=== PATIENT | male | born 1980 | race Caucasian/White ===

== ENCOUNTER 2017-05-01 18:12 | Emergency (ER) | payer SELFPAY ==
[~2017-05-01] VITALS: Ht 177.8 cm; Wt 77.1 kg
[~2017-05-01 18:12] MED LIST: HYDR-971 PO; ONDA4TAB10 SL; TAMS0.4C97 PO
[2017-05-01 18:26] VITALS: BP 139/90
--- NOTE | 2017-05-01 18:42 | PHYS DOC ---
Past Medical History Past Medical History: No Pertinent History Past Surgical History: Splenectomy Alcohol Use: None Drug Use: None Adult General Chief Complaint Chief Complaint: MECHANICAL FALL HPI HPI Patient is a 36 year old male since emergency department stating that tunnels when he slipped and fell. He states that he has having right thumb and elbow pain and discomfort. He states that this happened around the clock tonight. He has not taken anything for pain and discomfort. Patient has full range of motion noted of his hands wrist and elbow area. Patient denies any numbness or tingling into his hand. Patient is able to close his hand in a fist. Right tenderness noted over the scaphoid area. He'll pulses 2+. Cap refill brisk less than 2 seconds. Good sensation noted to the fingers. Review of Systems Review of Systems Constitutional: Denies fever or chills [] Eyes: Denies change in visual acuity, redness, or eye pain [] HENT: Denies nasal congestion or sore throat [] Respiratory: Denies cough or shortness of breath [] Cardiovascular: No additional information not addressed in HPI [] GI: Denies abdominal pain, nausea, vomiting, bloody stools or diarrhea [] : Denies dysuria or hematuria [] Musculoskeletal: Denies back pain. c/o right hand, right elbow pain Integument: Denies rash or skin lesions [] Neurologic: Denies headache, focal weakness or sensory changes [] Endocrine: Denies polyuria or polydipsia [] Current Medications Current Medications Current Medications Medications (Trade) Dose Ordered Sig/Maranda Start Time Stop Time Status Last Admin Dose Admin Ibuprofen (Motrin) 800 mg 1X ONCE 05/01/17 18:45 05/01/17 18:46 DC Allergies Allergies Allergies Coded Allergies Type Severity Reaction Last Updated Verified No Known Drug Allergies 05/12/16 No Physical Exam Physical Exam Constitutional: Well developed, well nourished, no acute distress, non-toxic appearance. [] HENT: Normocephalic, atraumatic, bilateral external ears normal, oropharynx moist, no oral exudates, nose normal. [] Eyes: PERRLA, EOMI, conjunctiva normal, no discharge. [] Neck: Normal range of motion, no tenderness, supple, no stridor. [] Cardiovascular:Heart rate regular rhythm, no murmur [] Lungs & Thorax: Bilateral breath sounds clear to auscultation [] Skin: Warm, dry, no erythema, no rash. [] Back: No tenderness Extremities: C/o right thumb, right wrist and right elbow tenderness, no cyanosis, no clubbing, ROM intact, no edema. No deformities no crepitus no discoloration noted. Patient was noted to have full range of motion of his elbow , wrist, and hand. Peripheral pulses, radial 2+ cap refill brisk less than 2 seconds. Good sensation noted to the fingers. Neurologic: Alert and oriented X 3, normal motor function, normal sensory function, no focal deficits noted. [] Psychologic: Affect normal, judgement normal, mood normal. [] Current Patient Data Vital Signs Vital Signs Date Time Temp Pulse Resp B/P (MAP) Pulse Ox O2 Delivery O2 Flow Rate FiO2 05/01/17 18:26 98.4 91 19 95 Room Air 98.4 EKG EKG [] Radiology/Procedures Radiology/Procedures [] Course & Med Decision Making Course & Med Decision Making Pertinent Labs and Imaging studies reviewed. (See chart for details) X-rays were negative for any bony abnormality per Dr. Schultz. Due to patient's tenderness she will be placed in a thumb spica splint with recommendations to follow-up with orthopedic. Recommended Tylenol or ibuprofen for pain and discomfort ice packs on 20 minutes off 20 minutes several times a day elevation as much as possible. Signs and symptoms to return back to emergency department as been provided. Patient agrees with discharge instructions treatment regimens and follow-up recommendations. [] Dragon Disclaimer Dragon Disclaimer This electronic medical record was generated, in whole or in part, using a voice recognition dictation system. Departure Departure Impression: Primary Impression: Hand pain, right Additional Impression: Elbow pain, right Disposition: 01 HOME, SELF-CARE Condition: STABLE Referrals: NO PCP (PCP) MENDOZA DESAI II, MD Patient Instructions: Elbow Injury-Brief, Hand Contusion, [id number] Additional Instructions: Activity as tolerated. Tylenol or ibuprofen for pain and discomfort. Ice packs on 20 minutes off 20 minutes several times a day. Elevation as much as possible. Keep the splint in place until you follow-up with orthopedic. Follow-up with orthopedic within the next week. Return back to emergency prior signs symptoms of become worse Splinting Splinting : Location: right hand Hand-Made Type: orthoglass Splint: thumb spica Pre-Proc Neuro Vasc Exam: normal Post-Proc Neuro Vasc Exam: normal Problem Qualifiers JEFFERY HORN APRN May 01, 2017 18:42
[2017-05-01] MEDS ORDERED: IBUPROFEN 800 MG TABLET. PO ONE (18:45)
--- NOTE | 2017-05-02 07:51 | RAD ---
Right hand, 3 views, 05/01/2017: History: Fall, pain No fracture or dislocation is identified. The soft tissues are unremarkable. IMPRESSION: No acute right hand abnormality is detected. Right elbow, 3 views, 05/01/2017: No fracture or dislocation is identified. There is no radiographic evidence of a joint effusion. IMPRESSION: No acute right elbow abnormality is detected.
== END 2017-05-01 19:20 | disposition home or self-care (01) ==
LOC: ER 18:12
DX: M79.644 Pain in right finger(s) (principal); M25.521 Pain in right elbow; W01.0XXA Fall on same level from slipping, tripping and stumbling without subsequent striking against object, initial encounter; Y93.89 Activity, other specified; Y99.8 Other external cause status; Y92.89 Other specified places as the place of occurrence of the external cause
CPT/HCPCS: 29125; 73080; 73130; 99284-25